=== PATIENT | male | born 1970 | race African-American/Black ===

== ENCOUNTER 2018-09-07 11:31 | Emergency (ER) | payer MEDICAID ==
[~2018-09-07] VITALS: Ht 188 cm; Wt 91.6 kg
[2018-09-07 11:47] VITALS: Ht 188 cm; Wt 91.6 kg
[2018-09-07 14:01] LABS: CALCIUM 8.9 mg/dL (8.5-10.1); CARBON DIOXIDE 30.6 mmol/L (21-32); CHLORIDE SERUM 100 mmol/L (98-107); CREATININE SERUM 1.2 mg/dL (0.7-1.3); GFR1 > 60 mL/min; GLUCOSE SERUM 96 mg/dL (74-106); POTASSIUM SERUM 4.2 mmol/L (3.5-5.1); SODIUM SERUM 138 mmol/L (136-145)
[2018-09-07 14:02] LABS: BASOPHIL % 0.3 % (0-2); PLATELET COUNT 312 x10^3mcL (130-400)
[2018-09-07 14:06] LABS: ALBUMIN 3.7 g/dL (3.4-5.0); ALKALINE PHOSPHATASE 85 U/L (46-116); ALT/SGPT 22 U/L (16-63); AST/SGOT 38 U/L (15-37); BILIRUBIN TOTAL 0.33 mg/dL (0.20-1.00)
[2018-09-07 14:08] LABS: TOTAL PROTEIN, SERUM 9.6 g/dL (6.4-8.2)
[2018-09-07 15:41] VITALS: BP 145/86
== END 2018-09-07 15:41 | disposition home or self-care (01) ==
LOC: ED 11:31
PROVIDERS: Emergency Medicine
DX: L03.317 Cellulitis of buttock (principal); L98.8 Other specified disorders of the skin and subcutaneous tissue; R03.0 Elevated blood-pressure reading, without diagnosis of hypertension; F17.200 Nicotine dependence, unspecified, uncomplicated; Z88.2 Allergy status to sulfonamides; Z88.6 Allergy status to analgesic agent; Z88.1 Allergy status to other antibiotic agents; Z98.890 Other specified postprocedural states
CPT/HCPCS: 99406; J0690; J1885; J2001